=== PATIENT | female | born 1955 | race Hispanic/Latino ===

== ENCOUNTER 2016-11-03 14:32 | Inpatient (IN) | payer MEDICAID ==
[2016-11-03 14:36] VITALS: O2SAT 99
--- NOTE | 2016-11-03 14:46 | ED PDOC ---
Psych Transfer Clearance - Clearance Statement Clearance Statement: Reviewed vital signs, lab results and transfer papers. Patient clinically stable for psychiatric admission.
[2016-11-03] MEDS ORDERED: Magnesium Hydroxide Susp 30 ml UD PO PRN (15:36)
[2016-11-03] MEDS ORDERED: Alum-Mag Hydrox-Simethicone Susp (30 mL) PO PRN (15:36)
[2016-11-03] MEDS ORDERED: Bismuth Subsalicylate 262 mg/15 ml Sus (240 ml) PO PRN (15:36)
--- NOTE | 2016-11-03 15:42 | PCM.PSYCH ---
Initial Psychiatric Evaluation - Initial Psychiatric Evaluation Type of Admission: Voluntary Chief Complaint (in patient's own words): "I was feeling suicidal" Patient's Reaction to Hospitalization: HPI: 61 yo female with w/ h/o bipolar (vs MDD), non-compliant with Risperdal x 2 weeks reports that [place] the [place], was feeling suicidal, so called the EMS to take her to the hospital. Patient reports that at that time, she had thoughts of walking in front of traffic. +Depressed mood. +Decreased energy/ concentration. +sleep/appetite disturbances. Patient will contact for safey at this time. Denies acute sylvia/AH/VH/paranoia/delusions. PPHx: Multiple past psychiatric hospitalizations with similar presentations. Psychiatrist Dr. Laguna. PMHx: Cancer, cellulitis, DVT, edema ALL: NKDA SHx: Rents a room; Denies drug/etoh/cig. Current Medications: Active Medications Generic Name Dose Route Start Last Admin Trade Name Freq PRN Reason Stop Dose Admin Acetaminophen 650 mg 11/03/16 15:36 Tylenol 325mg Tab PO Q4 PRN Pain, moderate (4-7) Al Hydrox/Mg Hydrox/Simethicone 30 ml 11/03/16 15:36 Maalox Plus 30 Ml PO Q4 PRN Dyspepsia Bismuth Subsalicylate 524 mg 11/03/16 15:36 Pepto-Bismol PO Q4 PRN Diarrhea Lorazepam 0.5 mg 11/03/16 15:36 Ativan PO 11/17/16 15:37 HS PRN Insomnia Lorazepam 0.5 mg 11/03/16 15:36 Ativan PO 11/17/16 15:37 Q6 PRN Anixety/Agitation Magnesium Hydroxide 30 ml 11/03/16 15:36 Milk Of Magnesia PO HS PRN Constipation Past Psychiatric History - Past Psychiatric History Previous Treatment History: Inpatient Pertinent Medical Hx (Current Medical&Sleep Prob, Allergies): Allergies Allergy/AdvReac Type Severity Reaction Status Date / Time No Known Allergies Allergy Verified 08/26/15 13:50 ARIPiprazole [Abilify] 5 mg PO HS #0 tab 09/01/15 Furosemide [Lasix] 20 mg PO DAILY #0 tab 09/01/15 Venlafaxine [Effexor XR] 75 mg PO DAILY #0 cer 09/01/15 traZODone [Desyrel] 50 mg PO HS PRN #0 tab 09/01/15 Review of Systems - Psychiatric Psychiatric: As Per HPI, Abnormal Sleep Pattern, Anhedonia, Anxiety, Change in Appetite, Depression, Difficulty Concentrating, Irritability, Suicidal Ideation Mental Status Examination - Personal Presentation Personal Presentation: Looks stated age - Affect Affect: Depressed - Motor Activity Motor Activity: Calm - Reliability in Providing Information Reliability in Providing Information: Fair - Speech Speech: Organized - Mood Mood: Depressed - Formal Thought Process Formal Thought Process: No Impairment - Hallucinations/Delusions Additional comments: No AH/VH/paranoia/delusions - Obsessions/Compulsions Obsessions: No Compulsions: No - Cognitive Functions Orientation: Person, Place, Situation, Time Sensorium: Alert Attention/Concentration: Attentive Judgement: Intact, as evidence by: Good judgement, Intact, as evidence by: Insight regarding need for hospitalization Memory: Recent intact, as evidence by: Ability to recall events of the day, Remote intact, as evidenced by: Abilit to recall sig. life events, Remote intact , as evidenced by: Ability to recall historical events - Risk Risk: Suicidal, Diminished functioning - Strength & Assets Inventory Strength & Assets Inventory: Cooperative DSM 5 DX - DSM 5 DSM 5 Diagnosis: Bipolar Disorder - Recommended/Plan of Treatment Treatment Recommendations and Plan of Treatment: -Admit to psychiatry -Restart Risperdal at 1 mg PO Q12 -Individual and group therapy -No 1:1 indicated at this time -Disposition planning Projected ELOS: 5-7 days Prognosis: Fair Discharge Plan and Discharge Criteria: Discharge when psychiatrically stable - Smoking Cessation Smoking Cessation Initiated: No Reason for not providing: Not indicated
[2016-11-03 16:11] VITALS: BMI 43.9
[2016-11-04 07:41] LABS: HEMATOCRIT 34.7 % (34.0-47.0); MEAN CELL VOLUME 85.8 fl (81.0-99.0); MEAN CORPUSCULAR HEMOGLOBIN 27.7 pg (27.0-31.0); MEAN CORPUSCULAR HGB CONC 32.3 g/dL (33.0-37.0); RED CELL DISTRIBUTION WIDTH 15.7 % (11.5-14.5); WHITE BLOOD COUNT 6.2 K/uL (4.8-10.8)
[2016-11-04 07:46] LABS: ALB/GLOB RATIO 1.1 (1.0-2.1); ALKALINE PHOSPHATASE 103 U/L (38-126); ALT/SGPT 72 U/L (9-52); AST/SGOT 41 U/L (14-36); BILIRUBIN,TOTAL 0.4 mg/dl (0.2-1.3); BLOOD UREA NITROGEN 15 mg/dl (7-17); CALCIUM 8.8 mg/dL (8.4-10.2); CARBON DIOXIDE 25 mmol/L (22-30); CHLORIDE 108 mmol/L (98-107); CHOLESTEROL 158 mg/dL (0-199); GFR AFRICAN-AMERICAN > 60; GLUCOSE,RANDOM 126 mg/dL (65-105); POTASSIUM 4.4 MMOL/L (3.6-5.0); SODIUM 141 mmol/l (132-148); TOTAL PROTEIN 6.6 G/DL (6.3-8.2)
[2016-11-04 08:01] LABS: T4 6.11 ug/dl (5.5-11.0)
[2016-11-04 08:15] LABS: THYROID STIMULATING HORMONE 2.37 mIU/ML (0.46-4.68)
--- NOTE | 2016-11-04 14:18 | CP.PCM.CON ---
History of Present Illness - History of Present Illness History of Present Illness: CC: Depression HPI:60F PMH seizures, obesity, Renal tumor s/p removal, chronic cellulitis of bilateral lower extremities admitted to psych for suicidal ideation, had a plan to walk in front of cars. Patient states she no longer feels this way but still feels depressed. No other complaints at this time. PMH: seizures, h/o renal tumor which was removed in 2006, pt has chronic cellulitis of LE. FAMILY HISTORY: Denies SOCIAL HISTORY: Denies smoking, drinking or use drugs ALLERGY: NKDA MEDS:as below Vitals: reviewed and currently stable Temp Pulse Resp BP Pulse Ox 98.1 F 60 20 124/60 99 11/04/16 06:12 11/04/16 06:12 11/04/16 06:12 11/04/16 06:12 11/03/16 14:33 Exam: GEN: WDWN, alert, cooperative HEENT: NCAT, PERRL, EOMI NECK: supple, no JVD, no lymphadenopathy CARDIAC: +S1S2 RRR LUNG: CTAB No WRR ABD: SOFT NT ND BSX4 NO MASSES NO HSM EXT: +pedal pulses, equal strength NEURO: AAOx3 SKIN warm, dry PSYCH normal mood, normal affect Labs: 11/04/16 07:00 11/04/16 07:00 Assessment and Plan: 60F PMH seizures, obesity, Renal tumor s/p removal, chronic cellulitis of bilateral lower extremities admitted to psych for suicidal ideation, had a plan to walk in front of cars. Patient states she no longer feels this way but still feels depressed. No other complaints at this time. Depression management per psych Past Patient History - Infectious Disease Hx of Infectious Diseases: None - Past Social History Smoking Status: Never Smoked - CARDIAC Hx Cardiac Disorders: No - PULMONARY Hx Respiratory Disorders: No - NEUROLOGICAL Hx Seizures: Yes - HEENT Hx HEENT Problems: No - RENAL Hx Chronic Kidney Disease: No - ENDOCRINE/METABOLIC Hx Endocrine Disorders: No Other/Comment: celllulitis - HEMATOLOGICAL/ONCOLOGICAL Hx Blood Disorders: No - INTEGUMENTARY Hx Dermatological Problems: Yes Hx Cellulitis: Yes - MUSCULOSKELETAL/RHEUMATOLOGICAL Hx Musculoskeletal Disorders: No Hx Falls: No - GASTROINTESTINAL Hx Gastrointestinal Disorders: No - GENITOURINARY/GYNECOLOGICAL Hx Genitourinary Disorders: No - PSYCHIATRIC Hx Bipolar Disorder: Yes (dx a year ago) Hx Depression: Yes Hx Substance Use: No - SURGICAL HISTORY Hx Surgeries: No Other/Comment: cancerous tumor removed left kidney - ANESTHESIA Hx Anesthesia: Yes Meds Allergies/Adverse Reactions: Allergies Allergy/AdvReac Type Severity Reaction Status Date / Time No Known Allergies Allergy Verified 08/26/15 13:50 - Medications Medications: Current Medications Acetaminophen (Tylenol 325mg Tab) 650 mg PO Q4 PRN PRN Reason: Pain, moderate (4-7) Al Hydrox/Mg Hydrox/Simethicone (Maalox Plus 30 Ml) 30 ml PO Q4 PRN PRN Reason: Dyspepsia Bismuth Subsalicylate (Pepto-Bismol) 524 mg PO Q4 PRN PRN Reason: Diarrhea Clotrimazole (Lotrimin 1% Cream) 1 applic TOP BID CASSI Last Admin: 11/04/16 13:06 Dose: 1 applic Lactic Acid (Lac-Hydrin 12% Cream (140 G)) 1 ea TOP BID CASSI Lorazepam (Ativan) 0.5 mg PO HS PRN PRN Reason: Insomnia Stop: 11/17/16 15:37 Lorazepam (Ativan) 0.5 mg PO Q6 PRN PRN Reason: Anixety/Agitation Stop: 11/17/16 15:37 Magnesium Hydroxide (Milk Of Magnesia) 30 ml PO HS PRN PRN Reason: Constipation Risperidone (Risperdal Tab) 2 mg PO Q12 CASSI Results - Vital Signs Recent Vital Signs: Last Vital Signs Temp 98.1 F 11/04/16 06:12 Pulse 60 11/04/16 06:12 Resp 20 11/04/16 06:12 BP 124/60 11/04/16 06:12 Pulse Ox 99 11/03/16 14:33 - Labs Result Diagrams: 11/04/16 07:00 11/04/16 07:00 Labs: Laboratory Results - last 24 hr 11/04/16 11/04/16 11/04/16 07:00 07:00 07:00 WBC 6.2 RBC 4.04 Hgb 11.2 L Hct 34.7 MCV 85.8 MCH 27.7 MCHC 32.3 L RDW 15.7 H Plt Count 251 Sodium 141 Potassium 4.4 Chloride 108 H Carbon Dioxide 25 Anion Gap 12 BUN 15 Creatinine 0.8 Est GFR ( Amer) > 60 Est GFR (Non-Af Amer) > 60 Random Glucose 126 H Hemoglobin A1c 6.4 Calcium 8.8 Total Bilirubin 0.4 AST 41 H ALT 72 H Alkaline Phosphatase 103 Total Protein 6.6 Albumin 3.4 L Globulin 3.2 Albumin/Globulin Ratio 1.1 Triglycerides 113 Cholesterol 158 LDL Cholesterol Direct 111 HDL Cholesterol 30 Vitamin B12 598 Thyroxine (T4) 6.11 TSH 3rd Generation 2.37
--- NOTE | 2016-11-04 14:25 | PCM.PYCHPN ---
Psychiatric Progress Note - Psychiatric Progress Note Patient seen today, length of contact: Patient evaluated, case discussed with team, chart reviewed, 35 min Patient Chief Complaint: "I'm feeling a little better" Problems Identified/Issues Discussed: Patient reports that her mood is starting to improve. Sleep and appetite are starting to improve. No current SI. NO adverse effects to medications noted. Medication Change: Yes (Increase Risperdal to 1 mg PO AM/ 2 mg PO HS) Medical Record Reviewed: Yes Mental Status Examination - Cognitive Function Orientation: Person, Place, Situation, Time Memory: Intact Attention: WNL Concentration: WNL Association: WNL Fund of Knowledge: WNL - Mood Mood: Depressed - Affect Affect: Depressed - Speech Speech: Appropriate - Formal Thought Process Formal Thought Process: No Impairment Psychotic Thoughts and Behaviors: No AH/VH/paranoia - Suicidal Ideation Suicidal Ideation: No - Homicidal Ideation Homicidal Ideation: No Goal/Treatment Plan - Goal/Treatment Plan Need for Continued Stay: Remain at risks for inpatient hospitalization, Severe depression anxiety, Discharge may exacerbated symptoms Progress Toward Problem(s) and Goals/Treatment Plan: Bipolar Disorder -Increase Risperdal to 1 mg PO AM/ 2 mg PO HS -Individual and group therapy -No 1:1 indicated at this time -Disposition planning Estimated Date of D/C: 11/08/16 - Smoking Cessation Smoking Cessation Initiated: No Reason for not providing: Not indicated
[2016-11-04] MEDS: Ammonium Lactate 12% Cream (140 g) TOP SCH (17:13)
[2016-11-04 17:40] LABS: FOLATE > 20.0 ng/mL
[2016-11-05] MEDS: Ammonium Lactate 12% Cream (140 g) TOP SCH ×2 (09:22→17:14)
--- NOTE | 2016-11-05 10:42 | PCM.PYCHPN ---
Psychiatric Progress Note - Psychiatric Progress Note Patient seen today, length of contact: Patient evaluated, case discussed with team, chart reviewed, 35 min Patient Chief Complaint: "I'm feeling a little better" Problems Identified/Issues Discussed: Patient reports that her mood continues to improve. Sleep and appetite are improving. No current SI. No adverse effects to medications noted. Supportive psychotherapy and psychoeducation provided. Medication Change: Yes (Increase Risperdal to 2 mg PO Q12 hr) Medical Record Reviewed: Yes Mental Status Examination - Cognitive Function Orientation: Person, Place, Situation, Time Memory: Intact Attention: WNL Concentration: WNL Association: WN Fund of Knowledge: [facility] Decription of patient's judgement and insights: Fair I/J - Mood Mood: Depressed - Affect Affect: Depressed - Speech Speech: Appropriate - Formal Thought Process Formal Thought Process: No Impairment Psychotic Thoughts and Behaviors: No AH/VH/paranoia - Suicidal Ideation Suicidal Ideation: No - Homicidal Ideation Homicidal Ideation: No Goal/Treatment Plan - Goal/Treatment Plan Need for Continued Stay: Remain at risks for inpatient hospitalization, Severe depression anxiety, Discharge may exacerbated symptoms Progress Toward Problem(s) and Goals/Treatment Plan: Bipolar Disorder; patient continues to report depression, but is starting to improve clinically. -Increase Risperdal to 2 mg PO Q12hr -Individual and group therapy -No 1:1 indicated at this time -Disposition planning Estimated Date of D/C: 11/08/16
[2016-11-06] MEDS: Ammonium Lactate 12% Cream (140 g) TOP SCH ×2 (08:58→16:13)
--- NOTE | 2016-11-06 09:50 | PCM.PYCHPN ---
Psychiatric Progress Note - Psychiatric Progress Note Patient seen today, length of contact: Patient evaluated, case discussed with team, chart reviewed, 35 min Patient Chief Complaint: pt has been less depressed and less anxious and is tolerating risperdal and no side effects Medication Change: Yes (Increase Risperdal to 2 mg PO Q12 hr) Medical Record Reviewed: Yes Mental Status Examination - Cognitive Function Orientation: Person, Place, Situation, Time Memory: Intact Attention: WNL Concentration: WNL Association: WNL Fund of Knowledge: WNL - Mood Mood: Depressed - Affect Affect: Depressed - Speech Speech: Appropriate - Formal Thought Process Formal Thought Process: No Impairment - Suicidal Ideation Suicidal Ideation: No - Homicidal Ideation Homicidal Ideation: No Goal/Treatment Plan - Goal/Treatment Plan Need for Continued Stay: Remain at risks for inpatient hospitalization, Severe depression anxiety, Discharge may exacerbated symptoms Progress Toward Problem(s) and Goals/Treatment Plan: will continue to stabilize with meds including risperdal Estimated Date of D/C: 11/08/16
[2016-11-07] MEDS: Ammonium Lactate 12% Cream (140 g) TOP SCH ×2 (09:11→17:08)
[2016-11-08 06:19] VITALS: BP 112/67; PULSE 65; RESP 18; TEMP 97.2
[2016-11-08] MEDS: Ammonium Lactate 12% Cream (140 g) TOP SCH (08:42)
--- NOTE | 2016-11-08 09:22 | PCM.PYCHDC ---
Mental Status Examination - Mental Status Examination Orientation: Person, Place, Situation, Time Memory: Intact Mood: Neutral Affect: Broad Speech: Appropriate Attention: WNL Concentration: WNL Association: WNL Fund of Knowledge: WNL Formal Thought Process: No Impairment Description of patient's judgement and insight: Fair I/J Psychotic Thoughts and Behaviors: No AH/VH/paranoia Suicidal Ideation: No Current Homicidal Ideation?: No Discharge Summary - Discharge Note Reason for Hospitalization: HPI: 61 yo female with w/ h/o bipolar (vs MDD), non-compliant with Risperdal x 2 weeks reports that [place] the [place], was feeling suicidal, so called the EMS to take her to the hospital. Patient reports that at that time, she had thoughts of walking in front of traffic. +Depressed mood. +Decreased energy/ concentration. +sleep/appetite disturbances. Patient will contact for [employer] at this time. Denies acute sylvia/AH/VH/paranoia/delusions. PPHx: Multiple past psychiatric hospitalizations with similar presentations. Psychiatrist Dr. Laguna. PMHx: Cancer, cellulitis, DVT, edema ALL: NKDA SHx: Rents a room; Denies drug/etoh/cig. Consultations:: List each consultation separately and include: 1. Reason for request. 2. Findings. 3. Follow-up Consultations: Medicine consult Summary of Hospital Course include:: 1. Description of specific treatment plan utilized for patients during their course of treatmen. 2. Summarize the time- course for resolution of acute symptoms and/or regressed behaviors. 3. Describe issues identified and worked on during hospitalization. 4. Describe medication utilized. 5. Describe medical problems identified and treated. 6. Reassessment of suicide risk Summary of Hospital Course: Patient was admitted to the psychiatry unit. Individual and group therapy were provided. The patient was restabilized on Risperdal 2 mg PO Q12 hr and no longer reports depression or suicidal ideation. - Final Diagnosis (DSM 5) Condition upon Discharge: STABLE DSM 5: Bipolar Disorder Disposition: HOME/ ROUTINE Follow-up Treatment Plan: Bipolar Disorder; now psychiatrically stable for discharge -Continue Risperdal 2 mg PO Q12hr -Discharge w/ outpatient follow-up Discharge >35 min Prescriptions/Medication Reconciliation: risperiDONE [RisperDAL Tab] 2 mg PO Q12 #60 tab - Smoking Cessation Smoking Cessation Medication prescribed: No Reason for not providing: Not indicated - Antipsychotic Medications Pt discharged on 2 or more routine antipsychotic medications: No
== END 2016-11-08 15:55 | disposition home or self-care (01) | DRG 430 ==
LOC: H.ER 14:32 → H.PSYCH 14:45 → H.STEP 15:20
PROVIDERS: ADMIT Psychiatry & Neurology Psychiatry; ATTEND Psychiatry & Neurology Psychiatry
PROC: GZHZZZZ Group Psychotherapy (ICD-10-PCS; principal; 2016-11-03)
PROC: GZ56ZZZ Individual Psychotherapy, Supportive (ICD-10-PCS; 2016-11-03)
DX: F31.9 Bipolar disorder, unspecified (principal); L03.115 Cellulitis of right lower limb; R45.851 Suicidal ideations; L03.116 Cellulitis of left lower limb; Z68.41 Body mass index [BMI] 40.0-44.9, adult; Z91.14 Patient's other noncompliance with medication regimen; F41.9 Anxiety disorder, unspecified; E66.9 Obesity, unspecified